=== PATIENT | female | born 1960 | race Two or more races ===

== ENCOUNTER 2023-10-18 12:33 | Inpatient (IN) | payer MEDICAID, OTHER ==
[~2023-10-18] VITALS: Ht 152.4 cm; Wt 70.0 kg
[2023-10-18] VITALS (7 sets, daily range): BP systolic 0–144; BP diastolic 0–86; PULSE 40–98; RESP 8–20; TEMP 96.1; O2SAT 65–96
[~2023-10-18 12:33] MED LIST: CIP500T PO
[2023-10-18] MEDS: EPINEPHrine HCL 250 ML IV ONE ×2 (12:45)
[2023-10-18] MEDS: SODIUM BICARB 8.4% 50Meq/50ml SYR INJ ONE ×2 (12:55→12:56)
[2023-10-18] MEDS: FUROSEMIDE 20 MG/2 ML VIAL IV ONE (13:00)
[2023-10-18] MEDS: FUROSEMIDE 20 MG/2 ML VIAL ONE (13:00)
[2023-10-18 13:11] LABS: Basophils # (auto) 0.1 10 ^3/uL (0-0.2); Eosinophils # (auto) 0.1 10 ^3/uL (0-0.8); Eosinophils % (auto) 0.8 % (0.0-7.0); Hemoglobin 11.8 g/dL (12.2-16.2); White Blood Cell 11.4 10^3/uL (4.4-10.8)
[2023-10-18 13:12] LABS: Basophils % (auto) 0.9 % (0.0-2.0); Hematocrit 38.5 % (36.0-46.0); Lymphocytes # (auto) 4.6 10 ^3/uL (0.4-5.4); Mean Corpuscular Hemoglobin 32.8 pg (28.0-32.0); Mean Corpuscular Hgb Conc. 30.7 g/dL (32.0-36.0); Monocytes # (auto) 0.4 10 ^3/uL (0-1.3); Monocytes % (auto) 3.1 % (0.0-12.0); Neutrophils # (auto) 6.3 10 ^3/uL (1.6-8.6); Neutrophils % (auto) 55.2 % (37.0-80.0); Nucleated Red Blood Cells % 0.6 %; Red Cell Distribution Width 16.8 % (11.8-14.3)
[2023-10-18 13:23] LABS: Albumin 3.3 g/dL (3.2-4.8); Alkaline Phosphatase 215 U/L (46-116); Anion Gap 23 (5-15); BUN/Creatinine Ratio 7.2 (10.0-20.0); Bilirubin, Total 0.8 mg/dL (0.2-1.0); Blood Urea Nitrogen 41 mg/dL (9-23); Calcium 8.9 mg/dL (8.7-10.4); Carbon Dioxide 21 mmol/L (20-30); Chloride 102 mmol/L (98-107); Glucose 183 mg/dL (74-106); INR 1.69 (0.9-1.15); Partial Thromboplastin Time 44.3 SEC (24.5-34.5); Prothrombin Time 17.2 sec (9.3-11.8); Sodium 146 mmol/L (136-145); Total Protein 5.3 g/dL (5.7-8.2)
[2023-10-18 13:34] LABS: Aspartate Aminotransferase 4362 U/L (13-40)
[2023-10-18 13:37] LABS: Alanine Aminotransferase 3295 U/L (7-40)
[2023-10-18 13:39] LABS: Lactic Acid w/Reflex 17.4 mmol/L (0.4-2.0); Potassium 6.2 mmol/L (3.5-5.1)
[2023-10-18] MEDS: InsuLIN REG 1unit/0.01ml Soln (100units/ml) IV ONE (13:45)
[2023-10-18] MEDS: DEXTROSE (50%) 50ML SYRG IV ONE (13:45)
[2023-10-18] MEDS: SODIUM BICARB 8.4% 50Meq/50ml SYR INJ IV ONE (13:45)
[2023-10-18] MEDS: PIPERACILLIN-TAZOB 3.375GM 100 ML IV ONE (13:45)
[2023-10-18] MEDS: ENOXAPARIN SOD 80 MG/0.8ML SYRINGE SC ONE (13:45)
[2023-10-18] MEDS: AZITHROMYCIN 500MG/ 250ML 250 ML IV ONE (13:45)
[2023-10-18] MEDS: FUROSEMIDE 40 MG/4 ML VIAL IV ONE (13:45)
[2023-10-18] MEDS: ALBUTEROL SULF 2.5 MG/0.5ML(0.5%) NEB SOLN NEB ONE (13:52)
[2023-10-18 14:00] LABS: Base Excess -13.1 mmol/L (-2.0-2.0)
[2023-10-18] MEDS: SODIUM ZIRCONIUM CYCL 10 GM PAK PO SCH (14:00)
[2023-10-18] MEDS ORDERED: LORazepam 2MG/ML-1ML VIAL IV ONE (15:15)
[2023-10-18] MEDS: SODIUM CHL 0.9% 1000 ML BAG XX ONE (15:15)
[2023-10-18] MEDS: NOREPINEPHRINE 8 MG/250ML KIT 250 ML IV ONE (15:19)
[2023-10-18] MEDS: NOREPINEPHRINE 8 MG/250ML KIT 250 ML IV SCH (15:29)
[2023-10-18] MEDS: PHENYLEPHRINE IV 250 ML IV ONE ×2 (16:16→16:20)
[2023-10-18] MEDS ORDERED: VANCOMYCIN PER PHARMACY 0 MG IV SCH (16:30)
[2023-10-18] MEDS ORDERED: ACETYLCYSTEINE IV ONE ×3 (16:30→18:45)
[2023-10-18] MEDS ORDERED: ACETAMINOPHEN 325 MG TAB PO PRN (16:30)
[2023-10-18] MEDS ORDERED: DEXTROSE (50%) 50ML SYRG IV PRN (16:30)
[2023-10-18] MEDS ORDERED: HYDROmorphone HCL 2 MG/ML VL/or syr IV PRN (16:30)
[2023-10-18] MEDS ORDERED: D5W 5% IV ONE ×3 (16:30→18:45)
[2023-10-18] MEDS ORDERED: HEPARIN DRIP/D5W 100UNITS/ML 250 ML IV SCH (16:45)
[2023-10-18] MEDS ORDERED: ATROPINE SULF 1 MG/10ml SYR IM ONE (16:46)
[2023-10-18] MEDS ORDERED: SODIUM BICARB 8.4% 50Meq/50ml SYR INJ IV ONE (16:50)
[2023-10-18] MEDS ORDERED: VANCOMYCIN 1.5GM/300ML 300 ML IV ONE (17:00)
[2023-10-18] MEDS ORDERED: VANCOMYCIN 1,500 MG in D5W 5% 250 ML IV ONE (17:00)
[2023-10-18 17:10] LABS: Base Excess -16.9 mmol/L (-2.0-2.0)
[2023-10-18 17:11] LABS: Basophils # (auto) 0.2 10 ^3/uL (0-0.2); Basophils % (auto) 1.1 % (0.0-2.0); Eosinophils # (auto) 0.1 10 ^3/uL (0-0.8)
[2023-10-18 17:13] LABS: Eosinophils % (auto) 0.4 % (0.0-7.0); Hematocrit 40.9 % (36.0-46.0); Hemoglobin 12.6 g/dL (12.2-16.2); Mean Corpuscular Hemoglobin 32.7 pg (28.0-32.0); Mean Corpuscular Hgb Conc. 30.8 g/dL (32.0-36.0); Mean Corpuscular Volume 106.2 fL (80.0-100.0); Monocytes # (auto) 0.1 10 ^3/uL (0-1.3); Monocytes % (auto) 0.5 % (0.0-12.0); Neutrophils # (auto) 11.7 10 ^3/uL (1.6-8.6); Nucleated Red Blood Cells % 0.6 %; Red Blood Cells 3.86 10^6/uL (4.0-5.20); Red Cell Distribution Width 17.3 % (11.8-14.3)
[2023-10-18] MEDS: DOPamine 1600MCG/ML D5W 250 ML IV ONE (17:13)
[2023-10-18] MEDS ORDERED: SODIUM BICARB 8.4% 50Meq/50ml SYR Vial IV ONE (17:15)
[2023-10-18] MEDS: DOPamine 1600MCG/ML D5W 250 ML IV SCH (17:15)
[2023-10-18] MEDS ORDERED: VASOPRESSIN 20 UNITS in SODIUM CHL 0.9% 99 ML IV SCH (17:30)
[2023-10-18 17:39] LABS: Prothrombin Time 38.4 sec (9.3-11.8)
[2023-10-18] MEDS: VASOPRESSIN 20 UNITS in SODIUM CHL 0.9% 99 ML IV SCH (17:39)
[2023-10-18 17:44] LABS: INR 4.01 (0.9-1.15); Partial Thromboplastin Time 138.1 SEC (24.5-34.5)
[2023-10-18] MEDS ORDERED: MORPHINE SULFATE 4 MG/ML SYR/VIAL IV ONE (17:53)
[2023-10-18] MEDS: MORPHINE SULFATE 4 MG/ML SYR/VIAL IV ONE (17:53)
[2023-10-18] MEDS: MORPHINE SULFATE 4 MG/ML SYR/VIAL ONE (17:53)
[2023-10-18] MEDS ORDERED: InsuLIN REG 1unit/0.01ml Soln (100units/ml) SC SCH (18:00)
[2023-10-18] MEDS ORDERED: ACCU-CHEK COMFORT CURVE STRIP VI SCH (18:00)
[2023-10-18] MEDS ORDERED: HEPARIN SODIUM (PORCINE) 5000 UNITS/ML 1ML VIAL IV ONE (19:00)
[2023-10-18] MEDS: SODIUM CHLORIDE 0.9% 1,000 ML IV ONE (19:30)
[2023-10-18] MEDS ORDERED: ACETYLCYSTEINE IV SCH (21:30)
[2023-10-18] MEDS ORDERED: D5W 5% IV SCH (21:30)
[2023-10-18] MEDS ORDERED: SODIUM CHLOR 0.9% PF (SALINE LOCK) 10ML VIAL/SYR IV SCH (22:00)
[2023-10-18] MEDS ORDERED: PIPERACILLIN-TAZOB 3.375GM 100 ML IV SCH (22:00)
== END 2023-10-18 22:15 | DRG 190 ==
LOC: ER 12:33 → EDBD 12:33 → OVERFLOW 16:26
PROVIDERS: ADMIT Internal Medicine; ATTEND Nurse Practitioner Acute Care
PROC: 06HY33Z Insertion of Infusion Device into Lower Vein, Percutaneous Approach (ICD-10-PCS; principal; 2023-10-18)
PROC: 5A1935Z Respiratory Ventilation, Less than 24 Consecutive Hours (ICD-10-PCS; 2023-10-18)
PROC: 0BH17EZ Insertion of Endotracheal Airway into Trachea, Via Natural or Artificial Opening (ICD-10-PCS; 2023-10-18)
PROC: 5A12012 Performance of Cardiac Output, Single, Manual (ICD-10-PCS; 2023-10-18)
PROC: 5A1D70Z Performance of Urinary Filtration, Intermittent, Less than 6 Hours Per Day (ICD-10-PCS; 2023-10-18)
DX: I21.4 Non-ST elevation (NSTEMI) myocardial infarction (principal); J96.01 Acute respiratory failure with hypoxia; I46.9 Cardiac arrest, cause unspecified; K72.00 Acute and subacute hepatic failure without coma; I12.0 Hypertensive chronic kidney disease with stage 5 chronic kidney disease or end stage renal disease; D64.9 Anemia, unspecified; E11.22 Type 2 diabetes mellitus with diabetic chronic kidney disease; E87.5 Hyperkalemia; N18.6 End stage renal disease; Z99.2 Dependence on renal dialysis
CPT/HCPCS: 36415; 36556; 36600; 71045; 80053; 82805; 82962; 83605; 83880; 84132; 84484; 85025; 85610; 85730; 87040; 87070; 87205; 90935; 92950; 93005; 94002; 94640; 96365; 96368; 96375; 96376; 99291; G0378; J0171; J1815; J7060